=== PATIENT | female | born 1940 | race Caucasian/White ===

== ENCOUNTER 2016-08-12 00:33 | Emergency (ER) | payer OTHER ==
[~2016-08-12] VITALS: Ht 152.4 cm; Wt 63.0 kg
[2016-08-12 00:59] VITALS: Ht 152.4 cm; Wt 63.0 kg
--- NOTE | 2016-08-12 02:52 | RADRPT ---
PROCEDURE: XR right shoulder. CLINICAL INDICATION: Right shoulder pain for 1 day TECHNIQUE: AP, Internal and external rotation views of the right shoulder were performed. COMPARISON: None. FINDINGS: There is normal osseous mineralization and alignment. No acute fracture or osseous lesion is identified. There are normal joints without evidence of arthritis or dislocation. The soft tissues are unremarkable. IMPRESSION: Unremarkable right shoulder. RPTAT: UU Physician Abiodun Date Time Electronically viewed and signed by Physician Abiodun on 08/12/2016 02:51 RS/
[2016-08-12] MEDS ORDERED: NAPR-260 PO (02:58)
--- NOTE | 2016-08-12 03:03 | ERD ---
ER Documentation Chief Complaint Date/Time DATE: 08/12/16 TIME: 02:59 Chief Complaint Right Shoulder pain. Had tylenol 0000 HPI Patient is 76-year-old female with a past medical history of hypertension who presents to the emergency department with right shoulder pain 3 hours. Patient states that she was dancing at a [employer] when the pain started. Patient denies any falls or trauma. Patient states the pain is constant. She states her current pain level is an 8 out of 10. She last took Tylenol at 12 AM. Patient states that she is unable to lift her arm up secondary to pain. Patient denies any numbness or tingling. Patient denies any previous injuries to the affected extremity. Patient denies any fever, chills, nausea, vomiting, back pain, abdominal pain, chest pain, shortness of breath, loss of consciousness. ROS All systems reviewed and are negative except as per history of present illness. Medications Home Meds Active Scripts Tramadol HCl (Tramadol HCl) 50 Mg Tablet, 50 MG PO Q6 Y for PAIN, #15 TAB Prov:TANA SARAH PA-C 08/12/16 Discontinued Scripts Naproxen* (Naprosyn*) 500 Mg Tablet, 500 MG PO BID Y for PAIN AND/OR INFLAMMATION, #30 TAB Prov:TANA SARAH PA-C 08/12/16 Allergies Allergies: Coded Allergies: No Known Allergy (Unverified , 08/12/16) PMhx/Soc Hx Alcohol Use: No Hx Substance Use: No Hx Tobacco Use: No Smoking Status: Never smoker FmHx Family History: No diabetes Physical Exam Vitals Vital Signs Date Time Temp Pulse Resp B/P Pulse Ox O2 Delivery O2 Flow Rate FiO2 08/12/16 00:59 97.6 77 20 175/74 97 Physical Exam General: Well-developed, well-nourished female. Appears in no acute distress. Head: Normocephalic, atraumatic. Eyes: Pupils are equally reactive bilaterally. EOMs grossly intact. No conjunctival erythema. ENT: Moist mucous membranes. Neck: Supple. No lymphadenopathy or thyromegaly. No meningeal signs. Lungs: Clear to auscultation bilaterally. No rhonchi, wheezing, rales or coarse breath sounds. Heart: Regular rate and rhythm. No murmurs, rubs or gallops. Extremities: No pedal edema, unilateral leg swelling. 5/5 strength in all extremities. Neurologic: Alert and oriented x3. Moving all four extremities. Normal speech. Steady gait. Skin: Normal color. Warm and dry. No rashes or lesions. Left arm: No obvious deformity, erythema, ecchymosis or swelling. Skin intact. Anterior shoulder tender to palpation. Mid-distal Humerus nontender to palpation, elbow nontender to palpation, forearm nontender to palpation. Decreased range of motion secondary to pain of the shoulder. Normal range of motion of the elbow, wrist, fingers.. Sensation intact to light touch. Neurovascularly intact. (Able to give thumbs up, make an ok sign, cross digits 2 and 3, thumb to pinky opposition. 2+ RP.) No snuffbox tenderness. Results 24 hrs Current Medications Medications (Trade) Dose Ordered Sig/Neda Route PRN Reason Start Time Stop Time Status Last Admin Dose Admin Tramadol HCl (Ultram) 50 mg ONCE ONCE PO 08/12/16 03:30 08/12/16 03:31 DC 08/12/16 03:29 Procedures/MDM ED COURSE: The patient was stable throughout ED course. I kept the patient and/or family informed of laboratory and diagnostic imaging results throughout the ED course. DIAGNOSTIC IMAGING: Read by radiologist. DIAGNOSTIC IMAGING REPORT Patient: MEME POE : 1940 Age: 76 Sex: F MR #: [id number] DOS: 08/12/16 0218 Ordering MD: TANA SARAH PA-C Location: [facility] Room/Bed: PROCEDURE: XR right shoulder. CLINICAL INDICATION: Right shoulder pain for 1 day TECHNIQUE: AP, Internal and external rotation views of the right shoulder were performed. COMPARISON: None. FINDINGS: There is normal osseous mineralization and alignment. No acute fracture or osseous lesion is identified. There are normal joints without evidence of arthritis or dislocation. The soft tissues are unremarkable. IMPRESSION: Unremarkable right shoulder. RPTAT: UU Physician Abiodun Date Time Electronically viewed and signed by Physician Abiodun on 08/12/2016 02:51 RS/ CC: TANA SARAH PA-C MEDICATIONS GIVEN: Patient initially declined pain medication given that she had taken Tylenol prior to arrival. Prior to the discharge, patient requesting medication. Patient was given Tramadol. MEDICAL DECISION MAKING: This is a 76-year-old female who presents with right shoulder pain 3 hours. Patient denies any trauma or falls. Vital signs were reviewed. Patient is afebrile. Patient is not hypoxic. X-ray was unremarkable for any acute fractures or dislocations.Given these findings, the patient's presentation is most consistent with shoulder sprain. I have a much lower clinical concern for fracture, dislocation, ligamentous tear, impingement syndrome, biceps tendonitis , gout, septic joint, osteoarthritis. Unable to rule out any ligament or tendon injuries at this time. PRESCRIPTION: Naproxen DISCHARGE: At this time, patient is stable for discharge and outpatient management. RICE therapy advised. I have instructed the patient to follow-up with his/her primary care physician in 1-2 days. I have discussed with the patient the possibility of needing to see an presales senior specialist for further workup and imaging studies if symptoms persist. I have instructed the patient to promptly return to the ER for any new or worsening symptoms including increased pain, fever, nausea, vomiting, weakness or LOC. The patient and/or family expressed understanding of and agreement with this plan. All questions were answered. Home care instructions were provided. Patients blood pressure was elevated (>120/80) but appears stable without evidence of hypertensive emergency, hypertensive urgency or end-organ failure. I had discussion with the patient about the risks of hypertension. I have advised the patient to follow up with his/her primary care physician for outpatient monitoring and treatment for hypertension in 2-3 days. I have instructed the patient to return to the ER for any new or worsening symptoms including chest pain, shortness of breath, headache, blurred vision, confusion, nausea, vomiting or LOC. Departure Diagnosis: Primary Impression: Shoulder pain Laterality: unspecified laterality Chronicity: acute Qualified Code: M25.519 - Acute shoulder pain, unspecified laterality Condition: Stable Patient Instructions: Shoulder Pain (Uncertain Cause) Referrals: COMMUNITY CLINICS YOU HAVE RECEIVED A MEDICAL SCREENING EXAM AND THE RESULTS INDICATE THAT YOU DO NOT HAVE A CONDITION THAT REQUIRES URGENT TREATMENT IN THE EMERGENCY DEPARTMENT. FURTHER EVALUATION AND TREATMENT OF YOUR CONDITION CAN WAIT UNTIL YOU ARE SEEN IN YOUR DOCTORS OFFICE WITHIN THE NEXT 1-2 DAYS. IT IS YOUR RESPONSIBILITY TO MAKE AN APPOINTMENT FOR FOLOW-UP CARE. IF YOU HAVE A PRIMARY DOCTOR --you should call your primary doctor and schedule an appointment IF YOU DO NOT HAVE A PRIMARY DOCTOR YOU CAN CALL OUR PHYSICIAN REFERRAL HOTLINE AT IF YOU CAN NOT AFFORD TO SEE A PHYSICIAN YOU CAN CHOSE FROM THE FOLLOWING [facility] [address] [facility] [address] [facility] [address] [facility] [address] [facility] [address] [facility]. [facility] [address] [facility]. [facility] YOU HAVE RECEIVED A MEDICAL SCREENING EXAM AND THE RESULTS INDICATE THAT YOU DO NOT HAVE A CONDITION THAT REQUIRES URGENT TREATMENT IN THE EMERGENCY DEPARTMENT. FURTHER EVALUATION AND TREATMENT OF YOUR CONDITION CAN WAIT UNTIL YOU ARE SEEN IN YOUR DOCTORS OFFICE WITHIN THE NEXT 1-2 DAYS. IT IS YOUR RESPONSIBILITY TO MAKE AN APPOINTMENT FOR FOLOW-UP CARE. IF YOU HAVE A PRIMARY DOCTOR --you should call your primary doctor and schedule and appointment IF YOU DO NOT HAVE A PRIMARY DOCTOR YOU CAN CALL OUR PHYSICIAN REFERRAL HOTLINE AT . IF YOU CAN NOT AFFORD TO SEE A PHYSICIAN YOU CAN CHOSE FROM THE FOLLOWING [facility] INSTITUTIONS: [facility] [address] [place] [address] [facility] [address] [place] [address] [facility] [address] [place] [address] [facility] Hours: Mon-Fri 9:00 AM - 5:00 PM Additional Instructions: Call your primary care doctor TOMORROW for an appointment during the next 1-2 days.See the doctor sooner or return here if your condition worsens before your appointment time. Able to rule out any ligament or tendon injuries at this time. Patient may need to follow-up with an presales senior specialist for further management of her pain. Patient may also need to see physical therapist. TANA SARAH PA-C Aug 12, 2016 03:03
[2016-08-12] MEDS ORDERED: TRAM50TA2 PO (03:08)
[2016-08-12] MEDS ORDERED: traMADol 50 MG TAB PO ONE (03:30)
== END 2016-08-12 03:30 | disposition home or self-care (01) ==
LOC: FTE 00:33
DX: S49.91XA Unspecified injury of right shoulder and upper arm, initial encounter (principal); I10 Essential (primary) hypertension; X58.XXXA Exposure to other specified factors, initial encounter; Y92.9 Unspecified place or not applicable

== ENCOUNTER 2017-01-23 21:59 | Inpatient (IN) | payer OTHER ==
[~2017-01-23] VITALS: Ht 152.4 cm; Wt 58.0 kg
[~2017-01-23 21:59] MED LIST: TRAM50TA2 PO
[2017-01-23] MEDS ORDERED: SOD CHLORIDE 0.9% 500 ML IV STA (23:46)
[2017-01-23] MEDS ORDERED: ONDANSETRON 4 MG INJ IV STA (23:46)
[2017-01-23] MEDS ORDERED: LIDOCAINE/MYLANTA 40 ML BTL PO STA (23:56)
[2017-01-23] MEDS ORDERED: morphine 2 MG INJ IV STA (23:56)
[2017-01-23] MEDS ORDERED: FAMOTIDINE 20 MG INJ IV STA (23:56)
[2017-01-24] VITALS (15 sets, daily range): BP systolic 101–119; BP diastolic 56–73; PULSE 62–111; RESP 18–20; TEMP 98.2; Ht 152.4 cm; Wt 58.0 kg
[2017-01-24 00:23] LABS: BASOPHILS % 0.4 % (0.0-2.0); EOSINOPHILS # 0.1 10^3/ul (0.0-0.5); EOSINOPHILS % 0.7 % (0.0-7.0); HEMATOCRIT 40.9 % (37.0-47.0); HEMOGLOBIN 13.9 g/dl (12.0-16.0); LYMPHOCYTES # 1.7 10^3/ul (0.8-2.9); MEAN CORPUSCULAR HEMOGLOBIN 29.8 pg (29.0-33.0); MEAN CORPUSCULAR VOLUME 87.8 fl (82.0-101.0); MEAN PLATELET VOLUME 10.4 fl (7.4-10.4); MONOCYTE # 1.1 10^3/ul (0.3-0.9); MONOCYTES % 10.3 % (0.0-11.0); NEUTROPHIL # 7.6 10^3/ul (1.6-7.5); PLATELET COUNT 266 10^3/UL (140-415); RED BLOOD COUNT 4.66 10^6/ul (4.20-5.40); RED CELL DISTRIBUTION WIDTH 12.7 % (11.5-14.5); WHITE BLOOD COUNT 10.5 10^3/ul (4.8-10.8)
[2017-01-24 00:36] LABS: INR 1.19; PROTIME 15.2 Sec (12.2-14.2); PT RATIO 1.2
[2017-01-24 00:41] LABS: ALANINE AMINOTRANSFERASE 25 IU/L (13-69); ALBUMIN 4.2 g/dl (3.3-4.9); ALKALINE PHOSPHATASE 92 IU/L (42-121); ANION GAP 25 (8-16); ASPARTATE AMINO TRANSFERASE 25 IU/L (15-46); BILIRUBIN,INDIRECT 0.6 mg/dl (0-1.1); BILIRUBIN,TOTAL 0.6 mg/dl (0.2-1.3); BLOOD UREA NITROGEN 52 mg/dl (7-20); CALCIUM 9.4 mg/dl (8.4-10.2); CARBON DIOXIDE 20 mmol/L (21-31); CHLORIDE 98 mmol/L (97-110); CREATININE 3.98 mg/dl (0.44-1.00); GLUCOSE 108 mg/dl (70-220); POTASSIUM 5.4 mmol/L (3.5-5.1); SODIUM 138 mmol/L (135-144); TOTAL PROTEIN 7.7 g/dl (6.1-8.1)
[2017-01-24] MEDS ORDERED: RIVA20TA PO (00:52)
[2017-01-24] MEDS ORDERED: BECAQ NASAL (00:52)
[2017-01-24] MEDS ORDERED: MAXZ25 PO (00:52)
[2017-01-24] MEDS ORDERED: ATEN50TA PO (00:52)
[2017-01-24] MEDS ORDERED: TIOT18CA INHALATION (00:52)
[2017-01-24] MEDS ORDERED: OMEP20CA16 PO (00:52)
[2017-01-24] MEDS ORDERED: BENA40TA41 PO (00:52)
[2017-01-24 00:57] LABS: TROPONIN-I < 0.012 ng/ml (0.00-0.12)
[2017-01-24] MEDS ORDERED: ALBUTEROL 0.5% (NEB) 2.5 MG/0.5 ML AMP INH STA (01:47)
[2017-01-24] MEDS ORDERED: SOD CHLORIDE 0.9% 500 ML IV STA (01:47)
[2017-01-24] MEDS ORDERED: NA POLYST SULFON 15 GM/60 ML BTL PO STA (01:47)
[2017-01-24] MEDS ORDERED: INSULIN REGULAR, HUMAN 100 UNIT/1 ML 3ML VIAL IV STA (01:47)
[2017-01-24 01:56] LABS: ADD UMIC YES; UR AMORPHOUS CRYSTAL FEW /HPF (NONE SEEN); UR ASCORBIC ACID NEGATIVE (NEGATIVE); UR BILIRUBIN (Dip) 2+ mg/dL (NEGATIVE); UR BLOOD (Dip) NEGATIVE (NEGATIVE); UR CLARITY TURBID (CLEAR); UR COLOR AMBER (YELLOW); UR GLUCOSE (Dip) NEGATIVE (NEGATIVE); UR KETONES (Dip) TRACE mg/dL (NEGATIVE); UR LEUKOCYTE ESTERASE (Dip) 3+ Leu/ul (NEGATIVE); UR NITRITE (Dip) NEGATIVE (NEGATIVE); UR NONSQUAMOUS EPITHELIAL CELL 2 /HPF (NONE SEEN); UR RBC 5 /HPF (0-5); UR SPECIFIC GRAVITY (Dip) 1.015 (1.003-1.030); UR SQUAMOUS EPITHELIAL CELL MODERATE /HPF (FEW); UR TOTAL PROTEIN (Dip) 1+ mg/dl (NEGATIVE); UR UROBILINOGEN (Dip) 2+ mg/dL (NEGATIVE)
[2017-01-24] MEDS ORDERED: ACETAMINOPHEN 325 MG TAB PO PRN ×2 (02:00→02:30)
[2017-01-24] MEDS ORDERED: ONDANSETRON 4 MG INJ IV PRN ×2 (02:00→02:30)
[2017-01-24] MEDS ORDERED: DEXTROSE 50% 50 ML SYRINGE IV PRN (02:00)
--- NOTE | 2017-01-24 02:25 | RADRPT ---
PROCEDURE: XR Chest. CLINICAL INDICATION: Epigastric pain TECHNIQUE: Single frontal view of the chest was obtained COMPARISON: None FINDINGS: The heart is not enlarged. Calcification in the aortic arch. There is minimal prominence of the lung interstitium likely minimal chronic changes. There is the juan ggestion of left apical fibrotic changes. ECG leads projected over the chest. There is no pleural effusion or pneumothorax. IMPRESSION: No acute disease. Please see above. RPTAT: HJES .Delgado Bryant MD, MD Date Time Electronically viewed and signed by .Delgado Bryant MD, MD on 01/24/2017 02:24 .S/
--- NOTE | 2017-01-24 02:27 | RADRPT ---
PROCEDURE: US abdomen limited right upper quadrant. CLINICAL INDICATION: Pancreatitis TECHNIQUE: Multiple real-time images were acquired of the patient's right upper quadrant of the ab domen utilizing a high resolution transducer. COMPARISON: None FINDINGS: No gallstones are identified within the gallbladder. There is no pericholecystic fluid or gallbladder wall thickening. The common bile duct measures 3.8 mm in maximal dimension. No free fluid is identified. No abnormality is seen in the liver. The pancreas is not well seen due to bowel gas. The right kidney measures 9 cm in length and is unremarkable. IMPRESSION: Pancreas not well seen. Otherwise unremarkable examination. RPTAT: HJES .Delgado Bryant MD, MD Date Time Electronically viewed and signed by .Delgado Bryant MD, on 01/24/2017 02:27 .S/
--- NOTE | 2017-01-24 02:29 | RADRPT ---
PROCEDURE: Renal US. CLINICAL INDICATION: Acute renal failure TECHNIQUE: Multiple sonographic images of the kidneys were obtained. The images were reviewed on a PACS workstation. COMPARISON: No prior studies are available for comparison. FINDINGS: The right kidney measures 9 cm in length and the left kidney 9.9 cm in length. No renal mass, calcu dwain or hydronephrosis is seen bilaterally. Renal cortical echogenicity appears to be within normal l imits. Bladder is not evaluable as it is empty. IMPRESSION: 1. Unremarkable renal ultrasound. RPTAT: HJES .Delgado Bryant MD, MD Date Time Electronically viewed and signed by .Delgado Bryant MD, MD on 01/24/2017 02:29 .S/
[2017-01-24] MEDS ORDERED: morphine 4 MG/ML VIAL IV PRN (02:30)
--- NOTE | 2017-01-24 03:23 | QN ---
Documentation Comment H&P dic a/p 1. GI: epigastric pain with nausea and vomiting, likely gastgritis vs PUD, start protonix and carafrate, (b) elevated lipase, ?cause, no gall stone, check lipid panel, ?meds, check CT 2. a fib 3. acute(?) renal failure, check fena, IVF JACY TAYLOR MD Jan 24, 2017 03:23
--- NOTE | 2017-01-24 03:48 | ERA ---
ER Documentation Chief Complaint Date/Time DATE: 01/24/17 TIME: 03:40 Chief Complaint AP with Nausea and vomiting just came back from [place] HPI 76-year-old female with a history of atrial fibrillation, hypertension, and asthma presenting with epigastric pain. She was in [place] for 1 month visiting her daughter. On the third day of her visit, she has developed epigastric pain with nausea, vomiting, and diarrhea. She had these symptoms several times throughout her trip. She was seen by and prescribed Bactrim and Reglan. She states her vomiting and diarrhea improved, however she continues to have epigastric pain with persistent nausea. For this reason she is unable to eat. She denies any fever, chills, dysuria, chest pain, shortness of breath. No hematochezia or melena. She describes her epigastric pain as aching, constant, worse with food, 7 out of 10 with no alleviating factors. ROS All systems reviewed and are negative except as per history of present illness. Medications Home Meds Reported Medications Rivaroxaban* (Xarelto*) 20 Mg Tablet, 20 MG PO WITH DINNER, TAB 01/24/17 Triamterene/Hctz* (Maxzide (37.5-25)*) 1 Each Tablet, 1 EACH PO DAILY, #30 TAB 01/24/17 Benazepril Hcl* (Benazepril Hcl*) 40 Mg Tablet, 40 MG PO DAILY, #30 TAB 01/24/17 Omeprazole* (Omeprazole*) 20 Mg Capsule.dr, 20 MG PO DAILY, #30 CAP 01/24/17 Tiotropium Suncook* (Spiriva*) 18 Mcg Cap.w.dev, 1 CAP INHALATION DAILY, #30 CAP 01/24/17 Beclomethasone Dip* (Beconase AQ*) 25 Gm Adams, 1 SPRAY NASAL BID, SPRAY TO EACH NOSTRIL 01/24/17 Atenolol* (Atenolol*) 50 Mg Tablet, 50 MG PO DAILY, #30 TAB 01/24/17 Discontinued Scripts Tramadol HCl (Tramadol HCl) 50 Mg Tablet, 50 MG PO Q6 Y for PAIN, #15 TAB Prov:TANA SARAH PA-C 08/12/16 Allergies Allergies: Coded Allergies: No Known Allergy (Unverified , 08/12/16) PMhx/Soc History of Surgery: Yes (appy) Anesthesia Reaction: No Hx Neurological Disorder: No Hx Respiratory Disorders: Yes (asthma) Hx Cardiac Disorders: Yes (HTN, AFIB) Hx Psychiatric Problems: No Hx Miscellaneous Medical Probl: No Hx Alcohol Use: No Hx Substance Use: No Hx Tobacco Use: No Smoking Status: Never smoker FmHx Family History: No diabetes Physical Exam Vitals Vital Signs Date Time Temp Pulse Resp B/P Pulse Ox O2 Delivery O2 Flow Rate FiO2 01/24/17 02:54 98.2 79 16 106/81 98 Room Air 01/24/17 01:08 86 18 92/55 99 Room Air 01/23/17 23:33 98.1 87 20 107/76 97 Room Air 01/23/17 22:07 99.6 88 24 96/60 96 Physical Exam Const: Well-appearing, no apparent distress, nontoxic Head: Atraumatic Eyes: Normal Conjunctiva ENT: Normal External Ears, Nose and Mouth. Neck: Full range of motion..~ No meningismus. Resp: Clear to auscultation bilaterally Cardio: Regular rate and rhythm, no murmurs Abd: Soft, mild epigastric tenderness, non distended. Negative Johnson sign. Normal bowel sounds Skin: No petechiae or rashes Back: No midline or flank tenderness Ext: No cyanosis, or edema Neur: Awake and alert and oriented 3, cranial nerves intact, strength and sensations intact in all 4 extremities Psych: Normal Mood and Affect Result Diagram: 01/23/17 2350 01/23/17 2350 Results 24 hrs Laboratory Tests Test 01/23/17 23:50 01/24/17 01:10 White Blood Count 10.510^3/ul Red Blood Count 4.6610^6/ul Hemoglobin 13.9g/dl Hematocrit 40.9% Mean Corpuscular Volume 87.8fl Mean Corpuscular Hemoglobin 29.8pg Mean Corpuscular Hemoglobin Concent 34.0g/dl Red Cell Distribution Width 12.7% Platelet Count 34395^3/UL Mean Platelet Volume 10.4fl Neutrophils % 72.0% Lymphocytes % 16.0% Monocytes % 10.3% Eosinophils % 0.7% Basophils % 0.4% Nucleated Red Blood Cells % 0.0/100WBC Neutrophils # 7.610^3/ul Lymphocytes # 1.710^3/ul Monocytes # 1.110^3/ul Eosinophils # 0.110^3/ul Basophils # 0.010^3/ul Nucleated Red Blood Cells # 0.010^3/ul Prothrombin Time 15.2Sec Prothrombin Time Ratio 1.2 INR International Normalized Ratio 1.19 Activated Partial Thromboplast Time 35.0Sec Sodium Level 138mmol/L Potassium Level 5.4mmol/L Chloride Level 98mmol/L Carbon Dioxide Level 20mmol/L Anion Gap 25 Blood Urea Nitrogen 52mg/dl Creatinine 3.98mg/dl Glucose Level 108mg/dl Calcium Level 9.4mg/dl Total Bilirubin 0.6mg/dl Direct Bilirubin 0.00mg/dl Indirect Bilirubin 0.6mg/dl Aspartate Amino Transf (AST/SGOT) 25IU/L Alanine Aminotransferase (ALT/SGPT) 25IU/L Alkaline Phosphatase 92IU/L Troponin I < 0.012ng/ml Total Protein 7.7g/dl Albumin 4.2g/dl Globulin 3.50g/dl Albumin/Globulin Ratio 1.20 Lipase 329U/L Urine Color ISAURA Urine Clarity TURBID Urine pH 5.0 Urine Specific [place] 1.015 Urine Ketones TRACEmg/dL Urine Nitrite NEGATIVEmg/dL Urine Bilirubin 2+mg/dL Urine Urobilinogen 2+mg/dL Urine Leukocyte Esterase 3+Gayathri/ul Urine Microscopic RBC 5/HPF Urine Microscopic WBC 134/HPF Urine Squamous Epithelial Cells MODERATE/HPF Urine Amorphous Crystals FEW/HPF Urine Hemoglobin NEGATIVEmg/dL Urine Glucose NEGATIVEmg/dL Urine Total Protein 1+mg/dl Current Medications Medications (Trade) Dose Ordered Sig/Neda Route PRN Reason Start Time Stop Time Status Last Admin Dose Admin Sodium Chloride (NS) 500 ml @ 500 mls/hr Q1H STAT IV 01/23/17 23:46 01/24/17 00:45 DC 01/23/17 23:53 Ondansetron HCl (Zofran Inj) 4 mg ONCE STAT IV 01/23/17 23:46 01/23/17 23:48 DC 01/23/17 23:53 Morphine Sulfate (morphine) 2 mg ONCE STAT IV 01/23/17 23:56 01/23/17 23:58 DC 01/24/17 00:10 Famotidine (Pepcid Iv) 20 mg ONCE STAT IV 01/23/17 23:56 01/23/17 23:58 DC 01/24/17 00:10 Miscellaneous Medication 40 ml 40 ml ONCE STAT PO 01/23/17 23:56 01/23/17 23:58 DC 01/24/17 00:10 Sodium Chloride (NS) 500 ml @ 500 mls/hr Q1H STAT IV 01/24/17 01:47 01/24/17 02:46 DC 01/24/17 02:26 Sodium Polystyrene Sulfonate (Kayexalate) 30 gm ONCE STAT PO 01/24/17 01:47 01/24/17 01:49 DC 01/24/17 02:27 Albuterol (Proventil 0.5% (Neb)) 15 mg ONCE STAT INH 01/24/17 01:47 01/24/17 01:49 DC Insulin Human Regular (Humulin R) 10 unit ONCE STAT IV 01/24/17 01:47 01/24/17 01:49 DC 01/24/17 02:32 Dextrose (D50w Syringe) ONCE PRN IV POC BLOOD GLUCOSE <250 MG/DL 01/24/17 02:00 01/24/17 02:33 Ondansetron HCl (Zofran Inj) 4 mg ER BRIDGE PRN IV NAUSEA AND/OR VOMITING 01/24/17 02:00 01/25/17 01:59 01/24/17 03:07 Acetaminophen (Tylenol Tab) 650 mg ER BRIDGE PRN PO MILD PAIN/FEVER 01/24/17 02:00 01/25/17 01:59 Tiotropium Suncook (Spiriva) 1 inh DAILY INH 01/24/17 09:00 Miscellaneous Information 1 spray BID NASAL 01/24/17 09:00 UNV Pantoprazole 40 mg 40 mg DAILY@06 PO 01/24/17 06:00 01/24/17 06:00 DC Sodium Chloride 1,000 ml @ 125 mls/hr Q8H IV 01/24/17 02:30 Ceftriaxone Sodium (Rocephin) 50 ml @ 100 mls/hr DAILY IVPB 01/24/17 09:00 Acetaminophen (Tylenol Tab) 650 mg Q4H PRN PO pain/feverf 01/24/17 02:30 Ondansetron HCl (Zofran Inj) 4 mg Q4H PRN IV nausea 01/24/17 02:30 Hydralazine HCl (Apresoline) 25 mg Q6H PRN PO sbp>160 01/24/17 02:30 Morphine Sulfate (morphine) 2 mg Q2H PRN IV pain 01/24/17 02:30 01/24/17 03:07 Sucralfate (Carafate) 1 gm QID PO 01/24/17 02:30 Pantoprazole (Protonix Iv) 40 mg Q12H IV 01/24/17 06:00 Procedures/MDM EMERGENT LABS AND DIAGNOSTIC STUDIES: Lab Results above were reviewed and interpreted by me. CBC: no anemia or evidence of infection CMP: Mild hyperkalemia, acute renal failure with elevated BUN and creatinine. No evidence of liver failure, or biliary obstruction Lipase: Mildly elevated Troponin within normal limits UA: Leukocytes and white blood cells noted in addition to other abnormalities 12-lead EKG was interpreted by Lorrie Meza MD: Atrial fibrillation with ventricular rate of 100 beats per minute Right axis deviation Normal intervals No acute ST or T wave changes suggestive of acute ischemia or STEMI. Radiology Results as interpreted by Radiology below were reviewed by Candy Meza MD: Chest x-ray shows no acute abnormalities Renal ultrasound is unremarkable Right upper quadrant ultrasound is unremarkable Initial Nursing notes reviewed. Previous Medical Records requested via the Electronic Health Record. EMERGENCY DEPARTMENT COURSE / MEDICAL DECISION MAKING: Patient is presenting with persistent epigastric pain with nausea. She is afebrile with stable vitals. Differential includes but is not limited to biliary colic, biliary obstruction, acute cholecystitis, pancreatitis, hepatitis , lower lobe pneumonia, gastritis, colitis, cardiac pathology, aortic dissection , ureterolithiasis, pyelonephritis. Labs were ordered to evaluate for above and were notable for hyperkalemia with acute renal failure and evidence of mild pancreatitis. She had no EKG changes associated with hyperkalemia. She was treated with insulin, glucose, albuterol, Kayexalate. Urine also showed evidence of possible infection, however the patient is asymptomatic. Urine culture is pending. At this time I do not think she needs antibiotics. I will defer that to the inpatient team. Chest Xray ordered to evaluate for pneumonia and was read as normal by radiology. Ultrasound of the abdomen ordered to evaluate gallbladder and showed no acute pathology. IV fluids were given. She was treated with Pepcid. I discussed the results with the patient and her daughter. She will be admitted to telemetry for further workup and monitoring. Critical Care Time: 35 minutes Treatments/Evaluations: Close monitoring and treatment of unstable vital signs, cardiorespiratory, and neurologic status, while maintaining tight balance of fluid, respiratory, and cardiac interventions. This time includes discussing the case with the patient and the patients family. This time does not include all procedures stated elsewhere in this record. This time also includes reviewing old records, labs and radiological studies. This time includes examining and re-examining the patient. Additionally, this time also includes arranging care with admitting and consulting physicians. Accepting Care Team: Current data and ongoing care discussed. Time: Time of admission Primary Provider: Chucky Consulting: None Outstanding Data: none Departure Diagnosis: Primary Impression: Acute pancreatitis Qualified Code: K85.90 - Acute pancreatitis, unspecified complication status, unspecified pancreatitis type Additional Impressions: Hyperkalemia Acute renal failure Qualified Code: N17.9 - Acute renal failure, unspecified acute renal failure type Condition: Serious KAUR MEZA MD Jan 24, 2017 03:48
[2017-01-24] MEDS: SOD CHLORIDE 0.9% 1,000 ML IV SCH ×3 (04:01→18:44)
[2017-01-24] MEDS: SUCRALFATE 1 GM TAB PO SCH ×5 (04:06→20:41)
--- NOTE | 2017-01-24 04:56 | HP ---
DATE OF ADMISSION: 01/24/2017 CHIEF COMPLAINT: Abdominal pain. HISTORY OF PRESENT ILLNESS: The patient presents to the emergency room at [facility] with a 1-month history of intermittent abdominal pain which she localizes to the epigastric region with associated nausea and vomiting. She states that this gets worse when she eats but that she has intermittently been able to tolerate diet, especially a bland diet. She denies any associated fevers or chills, viral symptoms. She does state there was fair diarrhea, but that she was able, with intentions to assure [____] to seek medical care upon arrival here in the [facility]. PAST MEDICAL HISTORY: Significant for hypertension, hyperlipidemia, and atrial fibrillation. SOCIAL HISTORY: The patient lives at home in [place] with her son and [id number]. She is independent of activities of daily living. Denies tobacco, alcohol, or illicit drug use. FAMILY HISTORY: Noncontributory. REVIEW OF SYSTEMS: Five systems were reviewed and found not to be revealing. PHYSICAL EXAMINATION: VITALS: Blood pressure 92/55, pulse rate 86, respirations 18, temperature 98.1. GENERAL: Pleasant woman, in no acute distress. Alert and oriented x3. HEENT: Normocephalic and atraumatic without evidence of scleral icterus, perioral cyanosis. Mucous membranes are dry. NECK: Soft and supple without masses. No jugular venous distention. No carotid bruits. CHEST: Clear to auscultation and percussion bilaterally. HEART: Regular rate and rhythm. S1, S2. No added sounds. ABDOMEN: Soft, nontender, and nondistended without palpable hepatosplenomegaly. EXTREMITIES: Without clubbing, cyanosis, or edema. SKIN: Without rashes. NEUROLOGIC: Grossly intact. LABORATORY STUDIES: Reveal hemoglobin 13.9 grams/dL, white count 10,500, platelets of 266,000. Sodium 136, potassium 5.4, chloride 98, bicarbonate 20, BUN 52, creatinine 3.98. Glucose is 108. Liver function tests are entirely within normal limits. Lipase is 329. The patient had a UA which revealed signs consistent with urinary tract infection. Ultrasound of the right upper quadrant does not reveal any gallstones or signs of cholecystitis. Ultrasound of the kidneys does not reveal any hydronephrosis. Chest x-ray is normal. ASSESSMENT AND PLAN: 1. Gastrointestinal: Patient with epigastric abdominal pain, nausea, intermittently difficulty tolerating p.o. intake. At this point in time, I feel she most likely has some form of gastritis and/or peptic ulcer disease. We will plan to treat with proton pump inhibitors and Carafate. Consider GI evaluation and possible endoscopy if not symptomatically improved. Patient with elevation of lipase, though clinical features are not entirely consistent with acute pancreatitis. We will plan to obtain CT scan of abdomen and pelvis to rule out PE. Other potential lesion to cause pancreatitis. 2. Renal: Patient with creatinine of nearly 4. Unclear if this represents acute, chronic, or acute on chronic renal failure. Unclear what baseline creatinine may be, though patient was told recently by her primary care physician that she did have kidney troubles and was recommended to take additional water at bedtime. We will obtain fractional excretion of sodium and urine protein creatinine ratio to further evaluate. Patient with urinary tract infection. Treat with Rocephin. 3. Cardiac: Patient has a history of atrial fibrillation, currently rate controlled. Has been on Xarelto and will hold at this time. Dictated By: Say Levi MD /karlos/mihaela /Document#: [id number]
[2017-01-24] MEDS ORDERED: PANTOPRAZOLE (EC) 40 MG TAB PO SCH (06:00)
[2017-01-24] MEDS: PANTOPRAZOLE 40 MG INJ IV SCH ×2 (06:05→17:55)
[2017-01-24] MEDS: CEFTRIAXONE 1 GM/50 ML (PMX) 50 ML IVPB SCH (09:41)
[2017-01-24] MEDS: FLUTICASONE 0.05% 16 GM NAS SPRAY NASAL SCH (09:43)
[2017-01-24] MEDS: TIOTROPIUM 18 MCG CAPSULE INHA DEV INH SCH (09:43)
--- NOTE | 2017-01-24 10:50 | RADRPT ---
PROCEDURE: CT abdomen and pelvis without intravenous contrast. CLINICAL INDICATION: Abdominal pain for 1 month, vomiting, hyperkalemia, acute renal failure TECHNIQUE: CT of the abdomen/pelvis was performed utilizing axial images with reconstructions in s agittal and coronal planes. The administered radiation dose is CTDI 8.48 mGy, DLP 448.49 mGy-cm. One or more of the following dose reduction techniques were used: Automated exposure control, Adjustmen t of the mA and/or kV according to patient size, or Use of iterative reconstruction technique. COMPARISON: There are no similar studies submitted for comparison. FINDINGS: Lung bases demonstrate diffuse bronchial wall thickening with mild centrilobular nodularity identifi ed at the left lower lobe. Limited unenhanced images of the liver, gallbladder, biliary system, pancreas, adrenal glands, and s pleen are grossly unremarkable. Kidneys demonstrate symmetric attenuation without hydronephrosis or nephrolithiasis. There is moderate to severe is descending and sigmoid diverticulosis without diverticulitis. Small bowel loops are normal in caliber and mural thickness. 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 No free fluid or fluid collection. No lymphadenopathy. No suspicious bone lesions. IMPRESSION: Evaluation of the abdominal viscera is limited without intravenous contrast. No acute abdominal pathology. Exudative inflammatory airway changes identified at the lung bases, related to airway infection and/ or aspiration. Moderate to severe colonic diverticulosis, uncomplicated. RPTAT: HVF .Adan Michel MD, MD Date Time Electronically viewed and signed by .Adan Michel MD, MD on 01/24/2017 10:55 .C/
[2017-01-24 11:13] LABS: ALBUMIN 3.6 g/dl (3.3-4.9); ALBUMIN/GLOBULIN RATIO 1.16; AMYLASE 91 U/L (11-123); BILIRUBIN,INDIRECT 0.4 mg/dl (0-1.1); BILIRUBIN,TOTAL 0.4 mg/dl (0.2-1.3); CALCIUM 8.5 mg/dl (8.4-10.2); CREATININE 3.71 mg/dl (0.44-1.00); MAGNESIUM 2.4 mg/dl (1.7-2.5); POTASSIUM 4.7 mmol/L (3.5-5.1); TOTAL PROTEIN 6.7 g/dl (6.1-8.1)
[2017-01-25] VITALS (11 sets, daily range): BP systolic 107–140; BP diastolic 52–74; PULSE 83–89; RESP 18–19
[2017-01-25] MEDS: SOD CHLORIDE 0.9% 1,000 ML IV SCH ×3 (03:01→20:40)
[2017-01-25] MEDS: PANTOPRAZOLE 40 MG INJ IV SCH ×2 (05:51→17:14)
[2017-01-25 07:53] LABS: BASOPHILS % 0.4 % (0.0-2.0); EOSINOPHILS # 0.1 10^3/ul (0.0-0.5); EOSINOPHILS % 1.5 % (0.0-7.0); HEMATOCRIT 39.5 % (37.0-47.0); LYMPHOCYTES # 1.4 10^3/ul (0.8-2.9); MEAN CORPUSCULAR HEMOGLOBIN 29.5 pg (29.0-33.0); MEAN CORPUSCULAR HGB CONC 32.9 g/dl (32.0-37.0); MEAN CORPUSCULAR VOLUME 89.6 fl (82.0-101.0); MEAN PLATELET VOLUME 10.6 fl (7.4-10.4); MONOCYTE # 0.7 10^3/ul (0.3-0.9); MONOCYTES % 9.2 % (0.0-11.0); NEUTROPHIL # 5.6 10^3/ul (1.6-7.5); NEUTROPHILS % 70.5 % (39.0-77.0); PLATELET COUNT 232 10^3/UL (140-415); RED BLOOD COUNT 4.41 10^6/ul (4.20-5.40); RED CELL DISTRIBUTION WIDTH 12.3 % (11.5-14.5); WHITE BLOOD COUNT 7.9 10^3/ul (4.8-10.8)
[2017-01-25 08:18] LABS: ALBUMIN 3.4 g/dl (3.3-4.9); ALBUMIN/GLOBULIN RATIO 1.13; BILIRUBIN,INDIRECT 0.6 mg/dl (0-1.1); BILIRUBIN,TOTAL 0.6 mg/dl (0.2-1.3); CALCIUM 8.4 mg/dl (8.4-10.2); CREATININE 2.15 mg/dl (0.44-1.00); POTASSIUM 3.7 mmol/L (3.5-5.1); TOTAL PROTEIN 6.4 g/dl (6.1-8.1)
[2017-01-25 08:19] LABS: MAGNESIUM 1.9 mg/dl (1.7-2.5)
[2017-01-25] MEDS: SUCRALFATE 1 GM TAB PO SCH ×4 (08:58→20:40)
[2017-01-25] MEDS: CEFTRIAXONE 1 GM/50 ML (PMX) 50 ML IVPB SCH (08:58)
[2017-01-25] MEDS: FLUTICASONE 0.05% 16 GM NAS SPRAY NASAL SCH (08:59)
[2017-01-25] MEDS: TIOTROPIUM 18 MCG CAPSULE INHA DEV INH SCH (09:01)
--- NOTE | 2017-01-25 09:34 | PN ---
Date/Time of Note Date/Time of Note DATE: 01/25/17 TIME: 09:23 Assessment/Plan VTE Prophylaxis VTE Prophylaxis Intervention: SCD's Lines/Catheters IV C[facility]ter Type (from [facility]): Peripheral IV Assessment/Plan Assessment/Plan 76 yo female with : 1. Epigastric pain, resolved at this time, patient tolerating clears very well , lipase back to normal, will advance her to a soft diet. If tolerate, plan to continue proton pump inhibitors at the time of discharge with outpatient GI follow-up as needed. 2. Mild elevation of lipase, imaging and the symptoms not consistent with pancreatitis, likely mild elevation in setting of days of nausea vomiting, it is resolved this morning. Patient will be advance again to a soft diet with plan for discharge home once renal function back to baseline. 3. Acute kidney injury, on likely chronic kidney disease, unfortunately we do not know her baseline creatinine but the patient did report that she was told by her primary care physician that she should stay hydrated as her kidney function was okay but not great. We will try to obtain outpatient laboratory. 4. Urinary tract infection, based on urine analysis, urine culture pending. Patient on Rocephin currently. 5. Reported chronic atrial fibrillation, she is currently rate control, her Xarelto is on hold due to the acute renal failure, she can be resume at the time of discharge at the renal dose depending on her baseline renal function. Prophylaxis: Protonix for GI prophylaxis, SCDs to lower extremity as long as Xarelto is on hold for DVT prophylaxis Disposition: Monitor renal function, advance diet, hopefully discharge planning in the next day or 2 once creatinine at baseline. Subjective 24 Hr Interval Summary Free Text/Dictation Patient tolerating clear liquids, renal function improving, no abdominal pain, nausea or vomiting this morning, lipase back to normal. Likely patient to be discharged in the next 24 hours if renal function back down to baseline. In the meantime will be advancing her diet to soft Exam/Review of Systems Vital Signs Vitals Vital Signs Date Time Temp Pulse Resp B/P Pulse Ox O2 Delivery O2 Flow Rate FiO2 01/25/17 08:16 89 01/25/17 07:08 99.7 19 140/74 94 01/24/17 02:54 Room Air Intake and Output 01/24/17 01/24/17 01/25/17 15:00 23:00 07:00 Intake Total 50 ml 1100 ml 1000 ml Output Total 210 ml 700 ml Balance 50 ml 890 ml 300 ml Exam Constitutional: alert, oriented, well developed Respiratory: clear to auscultation, normal air movement Cardiovascular: irregular rhythm (Rate controlled), nl pulses Gastrointestinal: non-tender, soft Musculoskeletal: nl extremities to inspection, nl gait and stance Extremities: normal pulses Neurological: [employer] II-XII intact, nl mental status, nl speech, nl strength Results Result Diagram: 01/25/1718 01/25/17 0618 Results 24 hrs Laboratory Tests Test 01/24/17 10:29 01/25/17 06:18 Sodium Level 144 142 Potassium Level 4.7 3.7 Chloride Level 107 104 Carbon Dioxide Level 19 L 23 Anion Gap 23 H 19 H Blood Urea Nitrogen 46 H 35 #H Creatinine 3.71 H 2.15 #H Glucose Level 107 95 Calcium Level 8.5 8.4 Magnesium Level 2.4 1.9 Total Bilirubin 0.4 0.6 Direct Bilirubin 0.00 0.00 Indirect Bilirubin 0.4 0.6 Aspartate Amino Transf (AST/SGOT) 13 L 14 L Alanine Aminotransferase (ALT/SGPT) 25 27 Alkaline Phosphatase 71 71 Total Protein 6.7 # 6.4 Albumin 3.6 3.4 Globulin 3.10 3.00 Albumin/Globulin Ratio 1.16 1.13 Amylase Level 91 92 Lipase 301 H 229 White Blood Count 7.9 # Red Blood Count 4.41 Hemoglobin 13.0 Hematocrit 39.5 Mean Corpuscular Volume 89.6 Mean Corpuscular Hemoglobin 29.5 Mean Corpuscular Hemoglobin Concent 32.9 Red Cell Distribution Width 12.3 Platelet Count 232 Mean Platelet Volume 10.6 H Neutrophils % 70.5 Lymphocytes % 18.0 Monocytes % 9.2 Eosinophils % 1.5 Basophils % 0.4 Nucleated Red Blood Cells % 0.0 Neutrophils # 5.6 Lymphocytes # 1.4 Monocytes # 0.7 Eosinophils # 0.1 Basophils # 0.0 Nucleated Red Blood Cells # 0.0 Phosphorus Level 5.0 H Medications Medications Current Medications Dextrose (D50w Syringe) ONCE PRN IV POC BLOOD GLUCOSE <250 MG/DL Last administered on 01/24/17 02:33; Admin Dose 50 ML; Start 01/24/17 at 02:00 Tiotropium [place] (Spiriva) 1 inh DAILY INH Last administered on 01/25/17 09: 01; Admin Dose 1 INH; Start 01/24/17 at 09:00 Fluticasone Propionate 2 spray 2 spray DAILY NASAL Last administered on 08:59; Admin Dose 2 SPRAY; Start 01/24/17 at 09:00 Sodium Chloride 1,000 ml @ 125 mls/hr Q8H IV Last administered on 01/25/17 03: 01; Admin Dose 125 MLS/HR; Start 01/24/17 at 02:30 Ceftriaxone Sodium (Rocephin) 50 ml @ 100 mls/hr DAILY IVPB Last administered on 01/25/17 08:58; Admin Dose 100 MLS/HR; Start 01/24/17 at 09:00 Acetaminophen (Tylenol Tab) 650 mg Q4H PRN PO pain/feverf; Start 01/24/17 at 02: 30 Ondansetron HCl (Zofran Inj) 4 mg Q4H PRN IV nausea Last administered on 06:36; Admin Dose 4 MG; Start 01/24/17 at 02:30 Hydralazine HCl (Apresoline) 25 mg Q6H PRN PO sbp>160; Start 01/24/17 at 02:30 Morphine Sulfate (morphine) 2 mg Q2H PRN IV pain Last administered on 01/24/17 03:07; Admin Dose 2 MG; Start 01/24/17 at 02:30 Sucralfate (Carafate) 1 gm QID PO Last administered on 01/25/17 08:58; Admin Dose 1 GM; Start 01/24/17 at 02:30 Pantoprazole (Protonix Iv) 40 mg Q12H IV Last administered on 01/25/17 05:51; Admin Dose 40 MG; Start 01/24/17 at 06:00 ENMA ORELLANA Jan 25, 2017 09:33
[2017-01-26 00:04] VITALS: PULSE 72
[2017-01-26 03:49] VITALS: BP 119/75; RESP 19
[2017-01-26 04:03] VITALS: PULSE 69
[2017-01-26] MEDS: PANTOPRAZOLE 40 MG INJ IV SCH (05:32)
[2017-01-26] MEDS: SOD CHLORIDE 0.9% 1,000 ML IV SCH (05:33)
[2017-01-26 06:38] LABS: BASOPHILS % 0.4 % (0.0-2.0); EOSINOPHILS # 0.2 10^3/ul (0.0-0.5); EOSINOPHILS % 2.8 % (0.0-7.0); HEMATOCRIT 36.3 % (37.0-47.0); HEMOGLOBIN 12.1 g/dl (12.0-16.0); LYMPHOCYTES # 1.3 10^3/ul (0.8-2.9); LYMPHOCYTES % 22.9 % (15.0-51.0); MEAN CORPUSCULAR HEMOGLOBIN 29.3 pg (29.0-33.0); MEAN CORPUSCULAR HGB CONC 33.3 g/dl (32.0-37.0); MEAN CORPUSCULAR VOLUME 87.9 fl (82.0-101.0); MEAN PLATELET VOLUME 10.4 fl (7.4-10.4); MONOCYTE # 0.5 10^3/ul (0.3-0.9); MONOCYTES % 8.7 % (0.0-11.0); NEUTROPHIL # 3.7 10^3/ul (1.6-7.5); NEUTROPHILS % 64.8 % (39.0-77.0); PLATELET COUNT 210 10^3/UL (140-415); RED BLOOD COUNT 4.13 10^6/ul (4.20-5.40); RED CELL DISTRIBUTION WIDTH 12.3 % (11.5-14.5); WHITE BLOOD COUNT 5.6 10^3/ul (4.8-10.8)
[2017-01-26 06:59] LABS: MAGNESIUM 1.5 mg/dl (1.7-2.5)
[2017-01-26 07:10] LABS: ALBUMIN/GLOBULIN RATIO 1.11; BILIRUBIN,INDIRECT 0.3 mg/dl (0-1.1); BILIRUBIN,TOTAL 0.3 mg/dl (0.2-1.3); CREATININE 1.5 mg/dl (0.44-1.00); POTASSIUM 3.4 mmol/L (3.5-5.1); TOTAL PROTEIN 5.7 g/dl (6.1-8.1)
[2017-01-26 07:25] VITALS: BP 122/71; RESP 19
[2017-01-26 08:04] VITALS: PULSE 86
[2017-01-26] MEDS: FLUTICASONE 0.05% 16 GM NAS SPRAY NASAL SCH (08:54)
[2017-01-26] MEDS: SUCRALFATE 1 GM TAB PO SCH ×2 (08:54→13:26)
[2017-01-26] MEDS: CEFTRIAXONE 1 GM/50 ML (PMX) 50 ML IVPB SCH (08:54)
--- NOTE | 2017-01-26 09:51 | PN ---
Date/Time of Note Date/Time of Note DATE: 01/26/17 TIME: 09:48 Assessment/Plan VTE Prophylaxis VTE Prophylaxis Intervention: ambulation Lines/Catheters IV Catheter Type (from [facility]): Peripheral IV Assessment/Plan Assessment/Plan 1. gastritis, plan d/c home with protonix 2. acute on chronic renal failure, much improved 3. d/c home Subjective 24 Hr Interval Summary Free Text/Dictation no complaints, no abdo pain, tiolerzting po and ambulation well Exam/Review of Systems Vital Signs Vitals Vital Signs Date Time Temp Pulse Resp B/P Pulse Ox O2 Delivery O2 Flow Rate FiO2 01/26/17 08:04 86 01/26/17 07:25 98.2 19 122/71 97 01/24/17 02:54 Room Air Intake and Output 01/25/17 01/25/17 01/26/17 15:00 23:00 07:00 Intake Total 1450 ml 820 ml Output Total 750 ml Balance 700 ml 820 ml Exam nad ctab, soft tn Results Result Diagram: 01/26/17 0555 01/26/17 0555 Results 24 hrs Laboratory Tests Test 01/26/17 05:55 White Blood Count 5.6 # Red Blood Count 4.13 L Hemoglobin 12.1 Hematocrit 36.3 L Mean Corpuscular Volume 87.9 Mean Corpuscular Hemoglobin 29.3 Mean Corpuscular Hemoglobin Concent 33.3 Red Cell Distribution Width 12.3 Platelet Count 210 Mean Platelet Volume 10.4 Neutrophils % 64.8 Lymphocytes % 22.9 Monocytes % 8.7 Eosinophils % 2.8 Basophils % 0.4 Nucleated Red Blood Cells % 0.0 Neutrophils # 3.7 Lymphocytes # 1.3 Monocytes # 0.5 Eosinophils # 0.2 Basophils # 0.0 Nucleated Red Blood Cells # 0.0 Sodium Level 144 Potassium Level 3.4 L Chloride Level 110 Carbon Dioxide Level 20 L Anion Gap 17 H Blood Urea Nitrogen 23 #H Creatinine 1.50 H Glucose Level 93 Calcium Level 8.0 L Phosphorus Level 4.0 Magnesium Level 1.5 L Total Bilirubin 0.3 Direct Bilirubin 0.00 Indirect Bilirubin 0.3 Aspartate Amino Transf (AST/SGOT) 14 L Alanine Aminotransferase (ALT/SGPT) 30 Alkaline Phosphatase 63 Total Protein 5.7 L Albumin 3.0 L Globulin 2.70 Albumin/Globulin Ratio 1.11 Medications Medications Current Medications Dextrose (D50w Syringe) ONCE PRN IV POC BLOOD GLUCOSE <250 MG/DL Last administered on 01/24/17 02:33; Admin Dose 50 ML; Start 01/24/17 at 02:00 Tiotropium [place] (Spiriva) 1 inh DAILY INH Last administered on 01/25/17 09: 01; Admin Dose 1 INH; Start 01/24/17 at 09:00 Fluticasone Propionate 2 spray 2 spray DAILY NASAL Last administered on 08:54; Admin Dose 2 SPRAY; Start 01/24/17 at 09:00 Sodium Chloride 1,000 ml @ 100 mls/hr Q10H IV Last administered on 01/26/17 05 :33; Admin Dose 100 MLS/HR; Start 01/24/17 at 02:30 Ceftriaxone Sodium (Rocephin) 50 ml @ 100 mls/hr DAILY IVPB Last administered on 01/26/17 08:54; Admin Dose 100 MLS/HR; Start 01/24/17 at 09:00 Acetaminophen (Tylenol Tab) 650 mg Q4H PRN PO pain/feverf; Start 01/24/17 at 02: 30 Ondansetron HCl (Zofran Inj) 4 mg Q4H PRN IV nausea Last administered on 06:36; Admin Dose 4 MG; Start 01/24/17 at 02:30 Hydralazine HCl (Apresoline) 25 mg Q6H PRN PO sbp>160; Start 01/24/17 at 02:30 Morphine Sulfate (morphine) 2 mg Q2H PRN IV pain Last administered on 01/24/17 03:07; Admin Dose 2 MG; Start 01/24/17 at 02:30 Sucralfate (Carafate) 1 gm QID PO Last administered on 01/26/17 08:54; Admin Dose 1 GM; Start 01/24/17 at 02:30 Pantoprazole (Protonix Iv) 40 mg Q12H IV Last administered on 01/26/17 05:32; Admin Dose 40 MG; Start 01/24/17 at 06:00 JACY TAYLOR MD Jan 26, 2017 09:51
[2017-01-26] MEDS ORDERED: PANT40TA3 PO (09:54)
--- NOTE | 2017-01-26 09:55 | PDOCDIS ---
Discharge Instructions CONDITION Patient Condition: Good HOME CARE INSTRUCTIONS: Diet Instructions: RegularSpecial Diet: soft diet ACTIVITY: Activity Restrictions: No Restrictions FOLLOW UP/APPOINTMENTS Follow-up Plan 1/ follow up with your regular doctor in 1-2 weeks 2. do NOT take dyazide (HCTZ/triamtere) or benazapril at this time, your regular doctor MAY or MAY NOT decide that you need to take these in the future 3. slowly advance your diet as you fell better JACY TAYLOR MD Jan 26, 2017 09:55
[2017-01-26] MEDS: TIOTROPIUM 18 MCG CAPSULE INHA DEV INH SCH (10:18)
[2017-01-26 11:22] VITALS: BP 122/78; RESP 19
[2017-01-26] MEDS ORDERED: morphine 2 MG INJ IV PRN (11:30)
[2017-01-26] MEDS ORDERED: POTASSIUM CHLORIDE (SR) 20 MEQ TAB PO STA (12:34)
[2017-01-26] MEDS ORDERED: MAGNESIUM OXIDE 400 MG TAB PO ONE (13:00)
[2017-01-26] MEDS ORDERED: MAGNESIUM CHLORIDE (SR) 64 MG TAB PO ONE (13:00)
== END 2017-01-26 13:50 | disposition home or self-care (01) | DRG 392 ==
LOC: E/R 21:59 → TEL 01-24 01:59
PROVIDERS: ADMIT Legal Medicine; ATTEND Legal Medicine
DX: K29.70 Gastritis, unspecified, without bleeding (principal); N17.9 Acute kidney failure, unspecified; N39.0 Urinary tract infection, site not specified; E87.5 Hyperkalemia; I48.2 Chronic atrial fibrillation; I12.9 Hypertensive chronic kidney disease with stage 1 through stage 4 chronic kidney disease, or unspecified chronic kidney disease; N18.9 Chronic kidney disease, unspecified
CPT/HCPCS: 36415; 71010; 74176; 76705; 76775; 80053; 81001; 81003; 82150; 83690; 83735; 84100; 84155; 84300; 84484; 85025; 85610; 85730; 87086; 93005; 96374; 96375; 96376; C9113; J0696; J1815; J2270; J2405; J7030; J7040

== ENCOUNTER 2018-03-08 20:37 | Emergency (ER) | END 2018-03-08 22:29 | disposition home or self-care (01) ==